=== PATIENT | male | born 1985 | race Caucasian/White ===

== ENCOUNTER 2024-10-06 11:45 | Outpatient (CLI) | payer MEDICAID, SELFPAY ==
[2024-10-06 14:42] LABS: Hematocrit 46.7 % (42.0-52.0); Hemoglobin 15.4 g/dL (14.1-18.0); Immature Granulocytes % 0.2 %; Mean Corpuscular HGB Conc 33.0 g/dL (31.8-35.4); Mean Corpuscular Hemoglobin 30.1 pg (27.0-31.2); Mean Corpuscular Volume 91.4 fl (80-94); Nucleated Red Blood Cells % 0 %; Platelet Count 237 K/mm3 (142-424); Red Blood Count 5.11 M/mm3 (4.60-6.20); Red Cell Distribution Width-SD 42.5 fL; White Blood Count 8.8 K/mm3 (4.8-10.8)
[2024-10-06 16:08] LABS: Albumin Level 4.1 g/dl (3.5-5.0); Chloride 104 mmol/L (98-107); Potassium 4.9 mmoL/L (3.5-5.1); Sodium 136 mmol/L (136-145)
[2024-10-06 16:11] LABS: Alanine Aminotransferase 19 U/L (12-78); Albumin/Globulin Ratio 1.2 (1.1-1.8); Alkaline Phosphatase 61 U/L (38-126); Anion Gap 8.9 mEq/L (5-15); Aspartate Amino Transferase 25 U/L (17-59); Bilirubin,Total 1.1 mg/dl (0.2-1.3); Blood Urea Nitrogen 12 mg/dl (9-20); Calcium 10.0 mg/dl (8.4-10.2); Carbon Dioxide 28 mmol/L (22.0-30.0); Creatinine,Serum 0.80 mg/dl (0.66-1.25); Estimated Glomerular Filt Rate 107 ml/min (>60); GFR (African American) 130 ML/MIN (>60); Globulin 3.4 g/dL (1.3-3.2); Glucose 92 mg/dl (74-100); Total Protein,Serum 7.5 g/dl (6.3-8.2)
[2024-10-06 16:40] LABS: Thyroid Stimulating Hormone 1.22 uIU/mL (0.465-4.68)
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
--- OUTSIDE RECORDS SUMMARY | 2024-10-07 10:16 | XMS_ITS | Clinical Summary ---
Author Organization [facility] Address [address] [place] [address] Phone Care Team Providers Care Managed Services Sales Consultant Name Role Phone Unavailable Primary Care Provider Unavailabl e Allergies No known active allergies Social History Tobacco Use Types Packs/Day Years Used Date Smoking Tobacco: Every Day Cigarettes Smokeless Tobacco: Never Alcohol Use Standard Drinks/Week Comments Yes 0 (1 standard drink = 0.6 oz pur e alcohol) Sex and Gender Information Value Date Recorded Sex Assigned at Not on file Legal Sex Male 4:36 PM EDT Gender Identity Not on file Sexual Orientation Not on file Obstetrics History Last Filed Vital Signs Vital Sign Reading Time Taken Comments Blood Pressure 116/79 08/07/2019 7:22 PM EDT Pulse 112 08/07/2019 7:22 PM EDT Temperature 37.1 C (98.8 F) 08/07/2019 7:22 PM EDT Respiratory Rate 14 08/07/2019 7:22 PM EDT Oxygen Saturation 98% 08/07/2019 7:22 PM EDT Inhaled Oxygen Concentration - - Weight - - Height - - Body Mass Index - - Plan of Treatment Health Maintenance Due Date Last Done Comments Annual Wellness Exam 10/11/1986 DTaP/TDaP/Td (1 - Tdap) 10/11/2002 Hepatitis B Vaccine (1 of 3 - 19+ 3-dose series) 10/11/2002 COVID-19 Vaccine (2023-2 5 season) 2023 Influenza Vaccine (#1) 2024 Meningococcal B Vaccine Aged Out No l onger eligible based on patient's age to complete this topic Pneumococcal Vaccine 0-49 Aged Out No longer eligible based on patient's age to complete this topic Insurance [employer] [place] [id number]
== END 2024-10-06 23:59 | disposition home or self-care (01) ==
LOC: LAB.DROPOF 10-07 10:14
PROVIDERS: PCP Nurse Practitioner Family; Visit Provider Nurse Practitioner Family
DX: F41.9 Anxiety disorder, unspecified (principal); G89.29 Other chronic pain
CPT/HCPCS: 80053; 84443; 85025